=== PATIENT | male | born 1995 | race Caucasian/White ===

== ENCOUNTER 2019-11-22 17:36 | Emergency (ER) | payer OTHER ==
[~2019-11-22] VITALS: Ht 172.7 cm; Wt 63.6 kg
[2019-11-22] MEDS ORDERED: LORazepam 2 mg/ml vial IV ONE (18:30)
[2019-11-22] MEDS ORDERED: normal saline 1000ml 1,000 ML IV ONE (18:30)
[2019-11-22 19:34] VITALS: BP 113/64
== END 2019-11-22 19:36 | disposition home or self-care (01) ==
LOC: ER 17:36
DX: F41.9 Anxiety disorder, unspecified (principal); F14.10 Cocaine abuse, uncomplicated; R52 Pain, unspecified; F15.90 Other stimulant use, unspecified, uncomplicated; F11.90 Opioid use, unspecified, uncomplicated; Z59.0 Homelessness
CPT/HCPCS: 96374; 99283; J2060; J7030